=== PATIENT | female | born 1990 | race Caucasian/White ===

== ENCOUNTER 2019-07-07 10:38 | Outpatient (CLI) | payer BC ==
--- NOTE | 2019-07-07 16:52 | EKG ---
Test Reason : CK RHYTHM Blood Pressure : / mmHG Vent. Rate : 074 BPM Atrial Rate : 074 BPM P-R Int : 144 ms QRS Dur : 090 ms QT Int : 400 ms P-R-T Axes : 045 040 014 degrees QTc Int : 444 ms Normal sinus rhythm with sinus arrhythmia T wave abnormality, consider anterior ischemia Abnormal ECG Confirmed by HUGH BURGOS ([id number]) on 07/07/2019 4:51:49 PM Referred By: MACARIO LAW Confirmed By:HUGH BURGOS
== END 2019-07-07 10:39 | disposition home or self-care (01) ==
LOC: EKG 10:38
PROVIDERS: ATTEND Advanced Practice Midwife
DX: R01.1 Cardiac murmur, unspecified (principal); I08.8 Other rheumatic multiple valve diseases
CPT/HCPCS: 93005; 93010; 93306